=== PATIENT | male | born 2000 | race Caucasian/White ===

== ENCOUNTER 2021-03-14 15:13 | Emergency (ER) | payer SELFPAY ==
[~2021-03-14] VITALS: Ht 190.5 cm; Wt 138.6 kg
[2021-03-14 16:01] VITALS: BP 138/69; TEMP 98.5
[2021-03-14] MEDS ORDERED: MOTRIN 400400 MG/TAB PO (16:56)
[2021-03-14] MEDS ORDERED: TYLENOL 325MG325 MG PO (16:56)
[2021-03-14 17:04] VITALS: PULSE 94
[2021-03-14 17:10] LABS: STREP SCREEN NEGATIVE
== END 2021-03-14 17:04 | disposition home or self-care (01) ==
LOC: COL.ER 15:13
PROVIDERS: Emergency Medicine
DX: J02.9 Acute pharyngitis, unspecified (principal)
CPT/HCPCS: J1885